=== PATIENT | male | born 1990 | race Asian ===

== ENCOUNTER 2024-02-13 08:26 | Emergency (ER) | payer OTHER, BC ==
[~2024-02-13] VITALS: Ht 170.2 cm; Wt 65.8 kg
[2024-02-13] MEDS ORDERED: Bactrim Ds Tab1 EACH PO (12:00)
== END 2024-02-13 12:46 | disposition home or self-care (01) ==
LOC: ER 08:26
DX: K61.0 Anal abscess (principal)
CPT/HCPCS: 72193; Q9967